=== PATIENT | female | born 1970 | race Caucasian/White ===

== ENCOUNTER 2018-09-08 10:55 | Emergency (ER) | payer MEDICAID ==
[~2018-09-08] VITALS: Ht 162.6 cm; Wt 83.2 kg
[2018-09-08 11:15] VITALS: Ht 162.6 cm; Wt 83.2 kg
[2018-09-08] MEDS ORDERED: INVEGA SUS78 MG/0.5 IM (11:17)
[2018-09-08] MEDS ORDERED: DEPAKOTE500 MG PO (11:18)
[2018-09-08] MEDS ORDERED: BENZTROPINE MESY2 MG PO (11:19)
[2018-09-08 11:43] LABS: BASOPHILS 0.3 % (0-2); EOSINOPHILS 0.9 % (0-7); HEMATOCRIT 41.5 % (36.0-48.0); HEMOGLOBIN 14.5 g/dL (12-16); IMMATURE GRANULOCYTES 0.2 % (0-5); LYMPHOCYTES 36.6 % (15-50); MCH 31.3 pg (26.0-34.0); MCHC 34.9 g/dL (31.0-37.0); MCV 89.6 fL (80.0-100.0); MEAN PLATELET VOLUME 10.8 fL (7.4-10.4); MONOCYTES 6.2 % (2-11); NEUTROPHILS 55.8 % (40-80); PLATELET COUNT 256 10x3/uL (130-400); RBC 4.63 10x6/uL (4.00-5.40); RDW 13.1 % (11.5-14.5); WBC 9.2 10x3/uL (4.8-10.8)
[2018-09-08 11:44] LABS: APPEARANCE HAZY (CLEAR); BILIRUBIN NEGATIVE (NEGATIVE); COLOR YELLOW (YELLOW); GLUCOSE NEGATIVE (NEGATIVE); KETONE NEGATIVE (NEGATIVE); NITRITE NEGATIVE (NEGATIVE); PROTEIN NEGATIVE (NEGATIVE); SPECIFIC GRAVITY 1.005 (1.005-1.020); UROBILINOGEN NORMAL (NORMAL)
[2018-09-08 11:59] LABS: ALBUMIN 3.5 g/dL (3.4-5.0); ALKALINE PHOSPHATASE 97 U/L (46-116); ALT (SGPT) 17 U/L (10-68); BILIRUBIN - TOTAL 0.23 mg/dL (0.2-1.3); CALC OSMOLALITY 275 mosm/kg (275-300); CALCIUM 8.8 mg/dL (8.5-10.1); CARBON DIOXIDE 22.5 mmol/L (21.0-32.0); CHLORIDE - SERUM 105 mmol/L (98-107); CREATININE - SERUM 0.7 mg/dL (0.6-1.3); GLUCOSE 105 mg/dL (74-106); POTASSIUM - SERUM 3.8 mmol/L (3.5-5.1); PROTEIN - SERUM 7.2 g/dL (6.4-8.2); SODIUM 139 mmol/L (136-145); UREA NITROGEN 7 mg/dL (7-18); eGFR NON AFRICAN AMERICAN > 90 mL/min (90-120)
--- NOTE | 2018-09-08 12:05 | NUR ---
The patient has a low score on the assessment for suicide. She does not require a 1:1 observation. She has a past hisory of psychiatric hospitalization and she has a dx of bipolar. She denies any S.I. today, but relays to this nurse that she would like to get some counseling. Did provide her [facility] phone number.
[2018-09-08] MEDS ORDERED: DOXYCYCLINE HY100 M2 PO (13:04)
[2018-09-08] MEDS ORDERED: FLAGYL500 MG PO (13:04)
[2018-09-08] MEDS ORDERED: HYDROCODON-ACE1 EAC7 PO (13:05)
[2018-09-08 13:18] VITALS: BP 118/66
== END 2018-09-08 13:19 | disposition home or self-care (01) ==
LOC: D.ER 10:55
PROVIDERS: Emergency Medicine
DX: R10.2 Pelvic and perineal pain (principal); N76.0 Acute vaginitis